=== PATIENT | female | born 1950 | race Caucasian/White ===

== ENCOUNTER 2024-05-25 04:46 | Day surgery (SDC) | payer OTHER, SELFPAY ==
[2024-05-25] VITALS (23 sets, daily range): BP systolic 94–155; BP diastolic 53–83; BMI 23.2
--- NOTE | 2024-05-25 01:25 | ED.GENMED ---
History of Present Illness
General
Chief Complaint: Abdominal Pain
Source: patient
Exam Limitations: none
Time Seen by Provider: 05/25/24 00:51
Nursing documentation reviewed up to this point in time: agreed with
History of Present Illness
History of Present Illness:
Pleasant 74-year-old female presents the emergency department with right lower quadrant abdominal pain. She states that she has had nausea with dry heaves. She has had 4 bowel movements today but states that it was solid stool. She had no
evidence of diarrhea. Currently she does not have any nausea vomiting or diarrhea. She denies any previous abdominal surgeries. Has never experienced this type of pain before. She is diet-controlled diabetic and has glaucoma. She does have a
history of anxiety. She states that she is otherwise healthy. She has had normal lab work recently. Denies fever, chills, chest pain, or shortness of breath.
Review of Systems
Review of Systems
Allergies reviewed?: Yes
All Other Systems: ROS reviewed and negative except as documented in HPI and ROS
Constitutional: Reports no symptoms
EENT: Reports no symptoms
Respiratory: Reports no symptoms
Cardiac: Denies chest pain or palpitations
ABD/GI: Reports abdominal pain, nausea (Resolved), vomiting (Resolved) and anorexia; Denies diarrhea, constipated, bloody stools or black stools
: Reports no symptoms
Musculoskeletal: Reports no symptoms
Skin: Reports no symptoms
Neurological: Reports no symptoms
Endocrine: Reports no symptoms
Hematologic/Lymphatic: Reports no symptoms
Psychiatric: Reports no symptoms
Phy Exam
General Physical Exam
General Presentation: moderate distress
General Skin: warm and dry
General Habitus: normal
General Mental: alert
General Hydration: appears well hydrated
ENT Exam
ENT Exam: EOMI, pharynx normal, neck supple and normocephalic
Eye Exam
Eye Exam: PERRL, cornea clear and conjunctiva normal
Cardiovascular Exam
Cardiovascular Exam: regular rate/rhythm, no edema, no murmur and normal peripheral pulses
Pulmonary Exam
Pulmonary Exam: lungs clear, no respiratory distress, no rales, no crackles, no rhonchi, no stridor, no wheezing and no cough
Gastrointestinal Exam
Gastrointestinal Exam: normal bowel sounds, non distended, guarding, no abdominal hernia and no masses
Palpation: right lower quadrant: Moderate tenderness (Positive McBurney's point tenderness)
Neurological Exam
Neurological Exam: alert, oriented x3, no motor deficits and speech normal
Musculoskeletal Exam
Musculoskeletal Exam: full ROM and no edema
Skin Exam
Skin Exam: normal color, warm/dry, no rash and no petechia
Psychiatric Exam
Psychiatric Exam: normal mood/affect
Course
Orders/Labs/Results
Orders:
Orders
05/25/24 01:24
Complete Blood Count/With Diff Urgent
Comprehensive Metabolic Panel Urgent
Lactic Acid Urgent
Lipase Urgent
PTT Urgent
Prothrombin Time Urgent
05/25/24 01:25
CT Abd/pelvis W Iv Cont Urgent
Comment:
Reason For Exam: rlq pain, anorexia
05/25/24 02:39
Urinalysis Reflex To Culture Urgent
Date Specimen was Collected: 05/25/24
Time Specimen was Collected: 02:36
05/25/24 03:25
Vancomycin [Vancocin] 1,500 mg 0.9% Sodium Chloride 500 ml [Nss] 500 ml IV NOW
05/25/24 03:42
Piperacillin/Tazo 4.5 Gram [Zosyn] 4.5 gram in 100 ml IV NOW
05/25/24 04:07
HYDROmorphone [Dilaudid] 0.5 mg IV NOW STA
05/25/24 04:09
Acetaminophen 1000MG/100Ml [Ofirmev] 1,000 mg in 100 ml IV ONCE
Acetaminophen IV Indication:: Targeted Temp Management
05/25/24 04:17
Acetaminophen 1000MG/100Ml [Ofirmev] 1,000 mg in 100 ml .ROUTE .STK-MED
HYDROmorphone [Dilaudid] 0.5 mg .ROUTE .STK-MED ONE
05/25/24 04:21
Admit/Transfer Patient As Directed
Co-Sign Provider:
Level of Care: Observation services
Assign to:: Medical/Surgical
Physician / Group: Dr. Valencia
Diagnosis: Acute appendicitis
05/25/24 04:22
PRN Pain Medication Management As Directed
May give lesser potent ordered pain med per pt: Yes
preference::
Protocol:: Medication orders for pain may be administered in a
manner that supports deferring to patient preference
when the pt is:
- Requesting an ordered lesser potent pain medication.
Least to most potent pain medications are defined
as: acetaminophen < NSAID < tramadol < opioids
(morphine, oxycodone, hydromorphone).
- Requesting a lesser dose of the same medication IF
ORDERED.
- Requesting a less intrusive route of administration
if both routes are prescribed by the provider (PO <
IV).
05/25/24 04:23
Code Status As Directed
Resuscitation Status: Full Code
05/25/24 04:33
Piperacillin/Tazo 4.5 Gram [Zosyn] 4.5 gram in 100 ml .ROUTE .STK-MED
05/25/24 04:55
0.9% Sodium Chloride 1000 ml [Nss] 1,000 ml IV 80 mls/hr
Acetaminophen [Tylenol] 650 mg PO Q4HPRN PRN
Bisacodyl [Dulcolax] 10 mg RECTAL [id number] PRN
Docusate W/Senna [Senokot-S] 1 tablet PO BIDPRN PRN
HYDROmorphone [Dilaudid] 0.5 mg IV Q4HPRN PRN
Polyethylene Glycol Powder [Miralax] 17 grams PO DAILYPRN PRN
Prochlorperazine [Compazine] 5 mg IV Q6HPRN PRN
05/25/24 04:55
Activity As Directed
Activity Level: Out of Bed-Early Mobility
Pneumatic Compression Sleeves As Directed
Type: Knee high
Vital Signs As Directed
Frequency: Per unit guidelines
DX Deep Vein Thrombosis Video Routine
05/25/24 05:22
Piperacillin/Tazo 3.375 Gram [Zosyn] 3.375 gram in 50 ml .ROUTE .STK-MED
05/25/24 05:31
Vancomycin [Vancocin] 1,500 mg 0.9% Sodium Chloride 500 ml [Nss] 500 ml IV NOW
05/25/24 Breakfast
NPO
Allow oral meds: Yes
Allow clear liquids: No
05/25/24 07:41
Dexamethasone Sod Phosphate [Decadron] 20 mg .ROUTE .STK-MED ONE
Lidocaine 2% Mpf [Xylocaine Mpf 2%] 100 mg .ROUTE .STK-MED ONE
Ondansetron Injectable [Zofran] 4 mg .ROUTE .STK-MED ONE
Propofol [Diprivan] 20 ml .ROUTE .STK-MED
Rocuronium [place] [Rocuronium] 50 mg .ROUTE .STK-MED ONE
05/25/24 07:46
Fentanyl Citrate/Pf [Sublimaze] 100 mcg .ROUTE .STK-MED ONE
05/25/24 08:01
HYDROmorphone [Dilaudid] 0.25 mg IV PACU-Q5MPRN PRN
HYDROmorphone [Dilaudid] 0.5 mg IV PACU-Q5MPRN PRN
Ondansetron Injectable [Zofran] 4 mg IV PACU-ONCEPRN PRN
Prochlorperazine [Compazine] 5 mg IV PACU-ONCEPRN PRN
Notify MD As Directed
Notify physician if: for SDS patients with known or suspected sleep obstructive sleep apnea, monitor in the
PACU.
Notify MD for any apneic/desaturation episodes
O2 Therapy [RESP] Urgent
Titrate/Wean O2 to maintain O2 sat greater than (%): 92
Special Instructions: -Provide supplemental oxygen to achieve O2 sat of 92% or greater.
-After 15 min, may wean O2 and discontinue if patient is able to maintain O2 sat of 92%
or greater during recovery period.
If patient is a discharge home, without oxygen therapy, notify anestheiologist if
unable to maintain O2 SAT of 92% or greater on room air for MD clearance.
05/25/24 08:09
Bupivacaine 0.25%Pf/Epinephrin [Sensorcaine-Epi 0.25%-0.0005] 30 ml .ROUTE .STK-MED ONE
Bupivacaine 0.5%Pf/Epinephrin [Sensorcain-Mpf Epi 0.5%-0.0005] 30 ml .ROUTE .STK-MED ONE
05/25/24 08:15
Normosol (Mult Electrolytes) [Normosol-R/Plasmalyte-A] 1,000 ml IV PER PROTOCOL
05/25/24 08:49
HYDROmorphone [Dilaudid] 1 mg .ROUTE .STK-MED ONE
05/25/24 09:01
OR Pathology Routine
Pre-Operative Diagnosis: acute appendicitis
Post-Operative Diagnosis: acute appendicitis
Operative Procedure: laparoscopic appendectomy
Surgeon: erik
Circulating Nurse: rainer
Specimen Type: appendix
05/25/24 09:15
Sugammadex Sodium [Bridion] 200 mg .ROUTE .STK-MED ONE
05/25/24 09:32
Admit Patient As Directed
Co-Sign Provider:
Level of Care: Post Proc/Surg Recovery
Assign to:: Medical/Surgical
Physician / Group: Erik
Diagnosis: Acute appendicitis
Reason for Overnight Stay: Standard of Care
Ketorolac [Toradol] 10 mg IV Q6HPRN PRN
Ondansetron Injectable [Zofran] 4 mg IV Q6HPRN PRN
Tramadol HCl [Ultram] 50 mg PO Q6HPRN PRN
Intake/ Output As Directed
Frequency: Per unit guidelines
PRN Pain Medication Management As Directed
May give lesser potent ordered pain med per pt: Yes
preference::
Protocol:: Medication orders for pain may be administered in a
manner that supports deferring to patient preference
when the pt is:
- Requesting an ordered lesser potent pain medication.
Least to most potent pain medications are defined
as: acetaminophen < NSAID < tramadol < opioids
(morphine, oxycodone, hydromorphone).
- Requesting a lesser dose of the same medication IF
ORDERED.
- Requesting a less intrusive route of administration
if both routes are prescribed by the provider (PO <
IV).
05/25/24 09:33
Rx Incentive Spirometry [RESP] Routine
Frequency: q1h while awake
# of times per hour: 10
DX Deep Vein Thrombosis Video Routine
05/25/24 Lunch
Regular
At Your Request: Full Participation
Does patient need a safe tray?: No
Piperacillin/Tazo 3.375 Gram [Zosyn] 3.375 gram in 50 ml IV Q6H
05/25/24 15:00
Prednisolone Acetate [Pred Forte 1% Eye Drops] See Dose Instructions OPHTH DAILY
05/25/24 18:00
Enoxaparin Sodium [Lovenox] 40 mg SC QPM
Piperacillin/Tazo 3.375 Gram [Zosyn] 3.375 gram in 50 ml IV Q6H
05/25/24 20:00
Brimonidine [Alphagan 0.2% Eye Drops] See Dose Instructions OPHTH BID
Timolol Maleate/Dorzolam HCl [Cosopt Eye Drops] See Dose Instructions OPHTH BID
05/25/24 22:00
Latanoprost [Xalatan Ophthalmic Solution] See Dose Instructions OPHTH HS
05/26/24 08:00
Escitalopram Oxalate [Lexapro] 10 mg PO DAILY
05/26/24 09:38
Discharge Patient As Directed
Is patient a candidate for the pneumococcal vaccine?: No
Year the MOST RECENT Conjugate Pneumococcal vaccine received: 2023
Is patient a candidate for the influenza vaccine?: No
Month/Year vaccine administered for [id number] flu season: January 2024
Do you have a designated caregiver: No
Abnormal Lab Results
05/25/24 05/25/24
01:24 02:39
WBC 15.4 H 10^3/uL
(4.8-10.8)
Abs Immat Gran (auto) 0.1 H 10^3/uL
(0-0.05)
Absolute Neuts (auto) 12.5 H 10^3/uL
(1.4-6.5)
Absolute Monos (auto) 1.0 H 10^3/uL
(0.1-0.6)
Neutrophils % 81.0 H %
(42.2-75.2)
Lymphocytes % 12.1 L %
(20.5-51.1)
Sodium 134 L mmol/L
(135-145)
Glucose 147 H mg/dl
(70-99)
Urine Ketones 2+ A
(Negative)
05/25/24 01:24
05/25/24 01:24
Vital Signs
Initial and Last Documented VS:
Initial Vital Signs
Temp Pulse Resp BP Pulse Ox
98.9 F 106 22 100/64 98
05/25/24 00:28 05/25/24 00:28 05/25/24 00:28 05/25/24 00:28 05/25/24 00:28
Last Documented Vital Signs
Temp Pulse Resp BP Pulse Ox
97.6 F 62 16 134/75 97
05/26/24 11:15 05/26/24 11:15 05/26/24 11:15 05/26/24 11:15 05/26/24 11:15
*Critical Care Note
Total Time (30-74mins, 75-104mins- exclusive of procedures): Not Applicable
Patient Management
Discussion with other providers: Pet Crematory Worker (Spoke with Dr. Valencia who agreed to have patient accepted to his service)
Update Note
Update Note:
CT ABDOMEN AND PELVIS WITH IV CONTRAST
IMPRESSION
Acute appendicitis, appendix is abnormally enlarged at 12 mm with appendicolith towards the base. There is air in the lumen of the appendix, nonspecific and may reflect incidental trapped air but has been described with advanced appendicitis
secondary to gas forming organism growth. In addition there is subtle heterogeneous/diminished enhancement of portions of the appendix wall raising suspicion for early gangrenous appendicitis. No gordo perforation. No definite abscess. In
addition the cecum is slightly mobile and the appendix is slightly superior to the level of the iliac crest which may alter surgical approach.
No other acute abnormalities.
ED Attending Note
-
Portions of this chart may have been created with voice recognition software.� Occasional wrong word or��sound alike� substitutions may have occurred due to the inherent limitations of voice recognition software.
Discharge Plan
Departure
Patient Disposition: Admit
Date of Disposition: 05/25/24
Time of Disposition: 03:27
Admit to: Telemetry
Presentation/result/management discussed w/ accepting MD/DO: Dr. Valencia
Discharge Problem:
Acute appendicitis
Interventions
Interventions:
*Risk Screen - Suicide Last Done: 05/25/24 06:30
*General Assessment Last Done: 05/25/24 01:05
*Neglect/Abuse Screening Last Done: 05/25/24 00:28
ED- Fall Risk Assessment Last Done: 05/25/24 01:05
*ED COVID-19 Vaccine History Last Done: 05/25/24 06:30
*Nursing Disposition Last Done: 05/25/24 06:15
[facility]jdmip-Tjspkuhkhg Assessment Last Done: 05/25/24 01:05
Discharge Date and Time
Discharge Date/Time: 05/25/24 06:33
[2024-05-25 01:36] LABS: % Basophils 0.1 % (0-2); % Immature Granulocytes 0.4 % (0-0.5); % Lymphocytes 12.1 % (20.5-51.1); % Monocytes 6.4 % (1.7-9.3); Absolute Immature Granulocytes 0.1 10^3/uL (0-0.05); Absolute Lymphocytes 1.9 10^3/uL (1.2-3.4); Absolute Neutrophils 12.5 10^3/uL (1.4-6.5); Hematocrit 44.2 % (37.0-47.0); Hemoglobin 15.1 g/dL (12.0-16.0); Mean Corp Hgb Conc. 34.2 g/dL (33.0-37.0); Mean Corpuscular Volume 87.9 fL (81.0-99.0); Mean Platelet Volume 10.3 fL (7.4-10.4); Nucleated Red Blood Cells % 0 %; Platelet Count 296 10^3/uL (130-400); Red Blood Cell Count 5.03 10^6/uL (4.20-5.40); Red Cell Dist. Width 13.1 % (11.5-14.5); White Blood Cell Count 15.4 10^3/uL (4.8-10.8)
[2024-05-25 01:49] LABS: ALT (SGPT) 20 U/L (0-35); AST (SGOT) 24 U/L (14-36); Albumin 4.3 g/dl (3.5-5.0); Alkaline Phosphatase 58 U/L (38-126); Blood Urea Nitrogen 15 mg/dl (7-17); Calcium 9.6 mg/dl (8.4-10.2); Carbon Dioxide 22 mmol/L (22-30); Chloride 101 mmol/L (98-107); Glucose 147 mg/dl (70-99); INR 0.88; Lipase 55 U/L (23-300); PT 12.4 Sec (11.4-14.6); Potassium 3.8 mmol/L (3.5-5.1); Sodium 134 mmol/L (135-145); Total Bilirubin 0.6 mg/dl (0.2-1.3); Total Protein 6.9 g/dl (6.3-8.2); eGFR > 60.00
[2024-05-25 01:50] LABS: APTT 25.5 Sec (23.4-35.0)
[2024-05-25 02:09] LABS: Lactic Acid 1.2 mmol/L (0.7-2.0)
[2024-05-25 02:53] LABS: Urine Albumin Negative (Neg - Trace); Urine Bilirubin Negative (Negative); Urine Character Clear (Clear); Urine Color Yellow; Urine Glucose Negative (Negative); Urine Ketone 2+ (Negative); Urine Leukocyte Negative (Negative); Urine Nitrite Negative (Negative); Urine Occult Blood Negative (Negative); Urine Urobilinogen Negative (Neg - 1+); Urine pH 6.5 (5.0-9.0)
[2024-05-25] MEDS: OFIRMEV 100 IV (04:18)
[2024-05-25] MEDS: DILAUDID 0.5 MG IV (04:19)
--- NOTE | 2024-05-25 04:29 | HPS.HSE ---
Addendum entered and electronically signed by Joe Valencia MD 05/25/24 07:45:
Patient seen and examined.
Patient is a 74 yo F with a PMH of anxiety and glaucoma who presents with 24 hours of abdominal pain. She states that her symptoms began yesterday afternoon. She first developed nausea and vomiting and attributed her symptoms to a gastroenteritis.
Subjective chills and a low-grade fever. Towards evening she developed abdominal discomfort which localized to the RLQ prompting presentation to the ED. No significant fluctuations from a GI standpoint. No chronic GI issues such as IBD or colon
cancers. Last colonoscopy was years ago. She continues to have some RLQ discomfort.
Gen: NAD
Abd: soft, tender to palpation in RLQ, ND, no diffuse peritonitis
Patient is a 74 yo F p/w acute appendicitis
The natural history and pathophysiology of appendicitis was briefly reviewed. CT scan imaging as a relates to her appendix was briefly reviewed. Options for management including medical management with antibiotics versus surgical management with
appendectomy were considered and discussed. The pros and cons of both approaches was discussed. Specifically, we discussed failure of medical management and future episodes of appendicitis. She does have appendicoliths noted within her appendix,
these patients tend to do poorly with antibiotics alone. Recommend appendectomy.
Plan for laparoscopic appendectomy. The procedure itself, as well as the risks, benefits, and alternatives was discussed. Specifically, we discussed the risks of bleeding, infection, injury to surrounding structures (bowel, bladder), staple line
leak, need for open procedure. Typical post procedure recovery including pain management and activity restrictions was discussed. All questions answered. Consent signed.
-- Laparoscopic appendectomy
-- NPO, IVF
-- Antibiotics: Zosyn
-- Pain control: Tylenol and IV Dilaudid as needed
Original Note:
Family Physician
-
Family Physician:
Unknown
Chief Complaint
-
Abdominal pain
History of Present Illness
a 74 years old female with PMH of glaucoma and anxiety present to ER with a complain of abdominal pain that start yesterday morning after eating breakfast. Pain was tolerable, so she went for shopping that she we was not able to continue as she felt
lightheaded and sweating. Patient had 4 bowel movement but stated was solid stool. She had nausea and episodes of vomiting and was not able to keep anything down. Pain started as generalized abdominal pain but around 5 pm, pain localized to the RLQ
7/10 or pain scale increases with movement. Denies fever, chills, urinary symptoms, SOB, chest pain or any other symptoms. Denies surgical history.
Medical History
Past Medical History
Past Medical History: Reports Psychiatric (Anxiety ) and Other (Glaucoma )
Past Surgical History: Reports None
Social History
Tobacco: Non-smoker
Alcohol: Occasional
Drug: None
Personal: Other
Living: Alone
Employment: Retired
Family History
Family History: Not pertinent
Allergies / Home Medications
Allergies reflects when Allergies were last updated in [facility].
Home Medications with original date entered in [facility]
Allergy/Medication List:
Patient Allergies
Allergy/AdvReac Type Severity Reaction Status Date / Time
No Known Allergies Allergy Verified 05/25/24 00:33
Home Medications Table - record
�Medication �Instructions �Recorded �Confirmed
brimonidine 1 drp BOTH EYES BID 05/25/24 05/25/24
escitalopram oxalate 10 mg tablet 10 mg PO DAILY 05/25/24 05/25/24
latanoprost 1 drp BOTH EYES HS 05/25/24 05/25/24
prednisolone acetate 1 drp BOTH EYES DAILY 05/25/24 05/25/24
timolol-hydrochlorothiazide 1 drp BOTH EYES DAILY 05/25/24 05/25/24
Review of Systems
-
History Source: Patient
A 12 point ROS was completed and negative except as noted: Yes
Constitutional: Reports No Symptoms
EENT: Reports No Symptoms
Respiratory: Reports No Symptoms
Cardiac: Reports No Symptoms
Abdomen/GI: Reports Abdominal Pain, Nausea and Vomiting
: Reports No Symptoms
Musculoskeletal: Reports No Symptoms
Skin: Reports No Symptoms
Neurological: Reports No Symptoms
Endocrine: Reports No Symptoms
Psych: Reports No Symptoms
Physical Exam
Vital Signs
Vital Signs
Temp Pulse Resp BP Pulse Ox
100.0 F 73 20 144/66 95
05/25/24 04:11 05/25/24 04:11 05/25/24 04:11 05/25/24 04:11 05/25/24 04:11
Physical Exam
General: No Apparent Distress
Respiratory: Clear
Cardiac: Regular Rhythm
GI: Soft, Normal Bowel Sounds and Tender (RLQ + McBurney`s point and obturator )
Musculoskeletal: No Edema
Neuro: Awake and AO x 3
Laboratory Results
-
05/25/24 01:24
05/25/24:24
Laboratory Results
PT 12.4 Sec (11.4-14.6) 05/25/24:
INR 0.88 05/25/24:
APTT 25.5 Sec (23.4-35.0) 05/25/24:24
Lactic Acid 1.2 mmol/L (0.7-2.0) 05/25/24:
Total Bilirubin 0.6 mg/dl (0.2-1.3) 05/25/24:24
AST 24 U/L (14-36) 05/25/24:24
ALT 20 U/L (0-35) 05/25/24:24
Alkaline Phosphatase 58 U/L (38-126) 05/25/24:24
Lipase 55 U/L (23-300) 05/25/24:24
Data Reviewed
-
CT Scan: Discussed with Patient
Impression/Plan
-
Abd/PLVS CT shows
Acute appendicitis, appendix is abnormally enlarged at 12 mm with appendicolith towards the base. There is air in the lumen of the appendix, nonspecific and may reflect incidental trapped air but has been described with advanced appendicitis
secondary to gas forming organism growth. In addition there is subtle heterogeneous/diminished enhancement of portions of the appendix wall raising suspicion for early gangrenous appendicitis. No gordo perforation. No definite abscess. In
addition the cecum is slightly mobile and the appendix is slightly superior to the level of the iliac crest which may alter surgical approach.
WBC 15
IMPRESSION:
Acute appendicitis
PLAN:
Admit/ observation/ med-surg (Dr. Valencia surgical services).
NPO
Abx
IVF
analgesics as needed.
antiemetics as needed.
Glaucoma
Continue with home meds
Anxiety
on escitalopram 10 mg daily
DVT prophylaxis SCDs
Code status Full code
[2024-05-25] MEDS: ZOSYN 100 IV (04:37)
[2024-05-25] MEDS: NSS 1000 IV (06:15)
--- NOTE | 2024-05-25 06:15 | PTCARENOTE ---
Pt a 74 y/o F arrived from ED at 06:05 with dx Acute Appendicitis. PMH HLD, Glaucoma, Anxiety, pt denies DM. Pt AOx3, denies pain at present time, bed in low position, call light in reach care on-going
[2024-05-25] MEDS: VANCOCIN 530 MG IV (06:20)
--- NOTE | 2024-05-25 07:45 | W.SUR.PREOP ---
Pre-Operative Surgical Note
-
I have examined this patient prior to the performance of the scheduled procedure.
The patient's condition is unchanged from the time of the current History and
Physical and the patient is able to undergo the scheduled procedure.
--- NOTE | 2024-05-25 09:30 | W.IMMPOSTOP ---
Surgical Immed Post Op Note
-
Primary Surgeon: Erik
Assisting Surgeon: None
Pre-op Diagnosis: Acute appendicitis
Post-op Diagnosis: Acute appendicitis
Procedure Performed: Laparoscopic appendectomy
Anesthesia Type: General
Specimen / Cultures:
1. Appendix
Estimated Blood Loss: 3 cc
Complications: None
Operative Findings:
1. Acutely inflamed and gangrenous tip appendicitis with healthy base, murky seropurulent fluid within RLQ
2. Base taken with johnson load stapler, mesentery with [employer] energy device
3. All visible fluid suctioned clear, healthy intact and hemostatic staple line
Plan:
-- Antibiotics: 7 days total of Zosyn while inpatient and Augmentin on discharge
--- NOTE | 2024-05-25 10:56 | PTCARENOTE ---
Patient returned from [facility] post laparoscopic appendectomy.The patient reports no pain.all 4 lap sites are intact without drainage.Vital signs are stable.The patient is anxious to eat and was ordered a regular diet.The patient is in her bed with the
call bello in reach.
[2024-05-25] MEDS: ZOSYN 50 IV ×3 (11:46→23:49)
[2024-05-25] MEDS: PRED FORTE 1% EYE DROPS 1 DROP OPHTH (16:09)
[2024-05-25] MEDS: LOVENOX 40 MG SC (17:22)
[2024-05-25] MEDS: COSOPT EYE DROPS 1 DROP OPHTH (20:18)
[2024-05-25] MEDS: ALPHAGAN 0.2% EYE DROPS 1 DROP OPHTH (20:41)
[2024-05-25] MEDS: XALATAN OPHTHALMIC SOLUTION 1 DROP OPHTH (22:08)
[2024-05-26 03:00] VITALS: BP 120/76
[2024-05-26] MEDS: ZOSYN 50 IV (05:49)
[2024-05-26 07:15] VITALS: BP 138/78
[2024-05-26] MEDS: LEXAPRO 10 MG PO (08:32)
[2024-05-26] MEDS: ALPHAGAN 0.2% EYE DROPS 1 DROP OPHTH (08:33)
[2024-05-26] MEDS: PRED FORTE 1% EYE DROPS 1 DROP OPHTH (08:33)
[2024-05-26] MEDS: COSOPT EYE DROPS 1 DROP OPHTH (08:34)
[2024-05-26] MEDS: TORADOL 10 MG IV (08:34)
--- NOTE | 2024-05-26 09:36 | W.PN.SURGUPD ---
Surgical Update
Surgical Update
Patient seen and examined. Doing well postop.
Mild postoperative incisional pain. Adequately controlled without narcotics. Ate breakfast well. No nausea.
AFVSS
NAD AAOx3
ABD: Soft, nondistended, mild incisional tenderness
Incisions with glue dressing
A/P: POD #1 status post lap appendectomy
Stable for discharge
Home with an additional course of Augmentin
--- NOTE | 2024-05-26 09:39 | W.DS.TRANS ---
DC Summary - Training Executive
-
Discharge Instructions:
Discharge Diagnosis/Procedures Laparoscopic appendectomy
Diet Regular
Activity No strenuous activity
Additional Activity No heavy lifting (>20 lbs) or strenuous
activities for 2 to 3 weeks postoperatively
Driving Restrictions No driving if too sore or taking narcotics
Bathing Restrictions OK to Shower
Wound Care Keep incisions clean and dry. Glue will flake
off in 2 to 3 weeks. Stitches will dissolve.
Use ice to the abdomen to reduce any bruising or
swelling.
Instructions:
Stand-Alone Forms:
Changes to Home Medications: No
Discharge Medications:
DC Medications w/original date entered in [facility]
acetaminophen 325 mg tablet 650 mg (2 x 325 mg) PO Q4HPRN PRN mild pain #1 tab 05/25/24
amoxicillin 875 mg-potassium clavulanate 125 mg tablet 1 tab PO Q12 antibiotic 6 days #12 tabs 05/25/24
brimonidine 1 drp BOTH EYES BID Eye Condition 05/25/24
escitalopram oxalate 10 mg tablet 10 mg PO DAILY Mental Health/Anxiety 05/25/24
ibuprofen 200 mg tablet 400 - 600 mg (2 - 3 x 200 mg) PO Q6HPRN PRN moderate pain #1 tab 05/25/24
latanoprost 1 drp BOTH EYES HS Eye Condition 05/25/24
prednisolone acetate 1 drp BOTH EYES DAILY Eye Condition 05/25/24
timolol-hydrochlorothiazide 1 drp BOTH EYES DAILY Eye Condition 05/25/24
Home Medication Changes
Pending Results: No
--- NOTE | 2024-05-26 10:16 | CM ---
Patient seen at bedside.
[facility]
IA completed
Lives in condo, elevator, no steps
PLOF: Independent
Denies DME
PCP: Eloise Mccarthy
Pharmacy: [facility]
PLAN: Home, no needs
[2024-05-26 11:15] VITALS: BP 134/75
== END 2024-05-26 12:14 | disposition home or self-care (01) ==
LOC: SDS 04:46
PROVIDERS: ATTENDING PHYSICIAN Surgery; EMERGENCY PHYSICIAN Student in an Organized Health Care Education/Training Program; FAMILY PHYSICIAN Nurse Practitioner
DX: K35.891 Other acute appendicitis without perforation, with gangrene (principal); K35.80 Unspecified acute appendicitis
CPT/HCPCS: 44970; 88304; 74177; 80053; 81003; 83605; 83690; 85025; 85610; 85730; 96365; 96375; 99285; C1776; Q9967

== ENCOUNTER → 2024-09-07 13:23 | Outpatient (REF) | payer OTHER, SELFPAY | LOC: HWWDC 13:23 | PROVIDERS: ATTENDING PHYSICIAN Internal Medicine | DX: Z12.31 Encounter for screening mammogram for malignant neoplasm of breast (principal) | CPT/HCPCS: 77063; 77067 ==

== ENCOUNTER → 2024-12-19 08:19 | Outpatient (REF) | payer OTHER, SELFPAY | LOC: HWRAD 08:19 | DX: Z78.0 Asymptomatic menopausal state (principal) | CPT/HCPCS: 77080 ==

== ENCOUNTER → 2025-01-10 10:55 | Outpatient (REF) | payer OTHER, SELFPAY | LOC: WDC 10:55 | DX: R92.333 Mammographic heterogeneous density, bilateral breasts (principal) | CPT/HCPCS: 76641 ==